=== PATIENT | male | born 1945 | race Caucasian/White ===

== ENCOUNTER 2018-04-11 15:28 | Emergency (ER) | payer MEDICARE, BC ==
[~2018-04-11] VITALS: Ht 182.9 cm; Wt 96.8 kg
[~2018-04-11 15:28] MED LIST: ASPIR-LOW81 MG PO; CALTRATE-600 W600 MG PO; CIPRO 500MG TA500 MG PO; CRESTOR10 MG PO; LISINOPRIL10 MG PO; LOPRESSOR; LOPRESSOR 225 MG/TAB PO; LORTAB 5/500 501 TAB PO; METRONIDAZOLE500 MG PO; PERCOCET 325 MG1 TA2 PO; PRAVACHOL10 MG PO
[2018-04-11 15:40] VITALS: TEMP 97
[2018-04-11 15:59] LABS: INR 1.2 (0.8-3.0); PROTHROMBIN TIME 13.4 SECONDS (9.7-12.8)
[2018-04-11 16:00] LABS: BASO % 0.3 % (0.0-2.0); EOS # 0.5 (0.0-0.7); EOS % 7.9 % (0-4.0); GRAN # 3.8 (1.4-6.5); GRAN % 57.3 % (42.2-75.2); HEMATOCRIT 40.7 % (42.0-52.0); HEMOGLOBIN 13.3 g/dl (13.5-18.0); LYMPH # 1.8 (1.2-3.4); LYMPH % 27.5 % (20.0-51.0); MEAN CELL VOLUME 96 fl (80.0-100.0); MEAN CORPUSCULAR HEMOGLOBIN 31 pg (27.0-31.0); MEAN CORPUSCULAR HGB CONC 33 g/dl (33.0-37.0); MEAN PLATELET VOLUME 10.1 fl (7.4-10.4); MONO # 0.4 (0.1-0.6); MONO % 6.4 % (1.7-9.3); PLATELET COUNT 108 K/mm3 (130-400); RED BLOOD COUNT 4.23 M/mm3 (4.20-5.60)
[2018-04-11 16:05] LABS: ALANINE AMINOTRANSFERASE 38 U/L (21-72); ALBUMIN 3.8 gm/dL (3.5-5.0); ALKALINE PHOSPHATASE 55 U/L (50-136); ANION GAP 8 mmol/L (7-16); AST,SGOT 26 U/L (15-37); BILIRUBIN,TOTAL 0.4 mg/dL (0.0-1.0); BLOOD UREA NITROGEN 48 mg/dL (9-20); CALCIUM 9.6 mg/dL (8.4-10.2); CARBON DIOXIDE 25 mmol/L (22-30); CHLORIDE 107 mmol/L (98-107); CREATININE, serum 2.29 mg/dL (0.66-1.25); GLUCOSE 137 mg/dL (74-106); POTASSIUM 4.9 mmol/L (3.4-5.0); SODIUM 140 mmol/L (137-145); TOTAL PROTEIN 7.1 gm/dL (6.4-8.2)
[2018-04-11 16:17] LABS: TROPONIN-I < 0.012 ng/mL (0.000-0.034)
[2018-04-11] MEDS ORDERED: ZETIA 10MG TAB10 MG PO (20:31)
[2018-04-11] MEDS ORDERED: ELIQUIS 2.5 PO (20:32)
[2018-04-11 20:33] VITALS: BP 156/80; PULSE 60
== END 2018-04-11 20:46 | disposition home or self-care (01) ==
LOC: COL.ER 15:28
PROVIDERS: Emergency Medicine
DX: R55 Syncope and collapse (principal); I25.10 Atherosclerotic heart disease of native coronary artery without angina pectoris; E78.5 Hyperlipidemia, unspecified; I12.9 Hypertensive chronic kidney disease with stage 1 through stage 4 chronic kidney disease, or unspecified chronic kidney disease; N18.9 Chronic kidney disease, unspecified; Z95.5 Presence of coronary angioplasty implant and graft; Z95.0 Presence of cardiac pacemaker; Z87.891 Personal history of nicotine dependence